=== PATIENT | male | born 1965 | race African-American/Black ===

== ENCOUNTER 2019-07-07 04:52 | Emergency (ER) | payer OTHER ==
[~2019-07-07] VITALS: Ht 177.8 cm; Wt 113.9 kg
[~2019-07-07 04:52] MED LIST: NAPR500T8 PO
[2019-07-07 05:00] VITALS: BP 162/107
[2019-07-07] MEDS ORDERED: DEXAMETHASONE 4 MG TABLET PO ONE (05:30)
[2019-07-07] MEDS ORDERED: NEOM10DR32 EACH EAR (05:44)
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
== END 2019-07-07 05:50 | disposition home or self-care (01) ==
LOC: ER 04:52
DX: H60.501 Unspecified acute noninfective otitis externa, right ear (principal)
CPT/HCPCS: 99283; J8540

== ENCOUNTER 2019-11-01 07:37 | Emergency (ER) | payer OTHER ==
[~2019-11-01] VITALS: Ht 177.8 cm; Wt 115.7 kg
[~2019-11-01 07:37] MED LIST changes: +NEOM10DR32 EACH EAR
[2019-11-01 07:45] VITALS: BP 166/110
[2019-11-01] MEDS ORDERED: SENN-121 PO (08:12)
[2019-11-01] MEDS ORDERED: HYDR25SU18 RC (08:12)
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
== END 2019-11-01 08:27 | disposition home or self-care (01) ==
LOC: ER 07:37
DX: K64.5 Perianal venous thrombosis (principal); K59.00 Constipation, unspecified
CPT/HCPCS: 99283

== ENCOUNTER 2020-04-26 17:39 | Emergency (ER) | payer OTHER, MEDICARE ==
[~2020-04-26] VITALS: Ht 177.8 cm; Wt 115.9 kg
[~2020-04-26 17:39] MED LIST changes: +HYDR25SU18 RC; +SENN-121 PO
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
[2020-04-26] MEDS ORDERED: HYDR-3164 PO (19:45)
[2020-04-26] MEDS ORDERED: ORPH100T PO (19:45)
[2020-04-26 19:53] VITALS: BP 159/61
== END 2020-04-26 19:53 | disposition home or self-care (01) ==
LOC: ER 17:39
DX: M54.2 Cervicalgia (principal); G89.11 Acute pain due to trauma; M54.5 Low back pain; M54.6 Pain in thoracic spine; R51 Headache; G89.29 Other chronic pain; M47.812 Spondylosis without myelopathy or radiculopathy, cervical region; V46.4XXA Person boarding or alighting a car injured in collision with other nonmotor vehicle, initial encounter; Y92.488 Other paved roadways as the place of occurrence of the external cause; Y93.89 Activity, other specified; Y99.8 Other external cause status
CPT/HCPCS: 70450; 72072; 72110; 72125; 99285-25

== ENCOUNTER 2021-11-01 11:08 | Emergency (ER) | payer MEDICARE, OTHER ==
[~2021-11-01] VITALS: Ht 177.8 cm; Wt 112.8 kg
[~2021-11-01 11:08] MED LIST changes: +HYDR-3164 PO; +ORPH100T PO
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
[2021-11-01] MEDS ORDERED: IV NORMAL SALINE 1000ML BAG 1,000 ML IV SCH (14:00)
[2021-11-01] MEDS ORDERED: fentaNYL PF VIAL 100 MCG/2 ML VIAL IV ONE (14:00)
--- NOTE | 2021-11-01 14:43 | RAD ---
INDICATION: Reason: flank pain, r/o stone / Spl. Instructions: / History: COMPARISON: None. TECHNIQUE: Axial CT images were obtained through the abdomen and pelvis without intravenous contrast. One or more of the following individualized dose reduction techniques were utilized for this examinat ion: 1. Automated exposure control; 2. Adjustment of the mA and/or kV according to patient size; 3 . Use of iterative reconstruction technique. FINDINGS: Vascular: Calcific atherosclerosis. Hepatobiliary: No intrahepatic biliary duct dilation. Pancreas: No peripancreatic edema. Spleen: Spleen unremarkable. Renal/Bladder: Right renal cystic lesion. No hydronephrosis. Gastrointestinal: No periappendiceal inflammatory changes. No dilated loops of bowel to suggest obstr uction. Degenerative changes the spine with multilevel central canal and neural foraminal stenosis. Postopera tive changes to left proximal femur with intramedullary evan. There are some heterotopic ossification adjacent to the hips. Osseous excrescence. IMPRESSION: * No evidence of bowel obstruction or appendicitis. * No hydronephrosis. 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 Electronically signed by: Magdy Wade MD (11/01/2021 2:40 PM) [id number]
[2021-11-01 14:44] LABS: BILIRUBIN,URINE NEGATIVE (NEG); CLARITY,URINE CLEAR; COLOR,URINE YELLOW; NITRITE,URINE NEGATIVE (NEG); PH,URINE 7.5 (<5.0-8.0); PROTEIN,URINE NEGATIVE (NEG-TRACE); UROBILINOGEN,URINE 0.2 mg/dL (0.2 mg/dL)
[2021-11-01 14:57] LABS: BACTERIA,URINE 0 /HPF (0-FEW); HYALINE CASTS, URINE FEW /HPF; RBC,URINE OCC /HPF (0-2); WBC,URINE OCC /HPF (0-4)
[2021-11-01 15:29] LABS: BASO # 0.1 x10^3/uL (0.0-0.2); BASO % 1 % (0-3); EOS # 0.5 x10^3/uL (0.0-0.7); EOS % 8 % (0-3); LYMPH # 1.7 x10^3/uL (1.0-4.8); LYMPH % 29 % (24-48); MEAN CORPUSCULAR HEMOGLOBIN 29 pg (25-35); MEAN CORPUSCULAR HGB CONC 33 g/dL (31-37); MEAN CORPUSCULAR VOLUME 86 fL (79-100); MONO # 0.6 x10^3/uL (0.0-1.1); MONO % 10 % (0-9); NEUT # 3.1 x10^3/uL (1.8-7.7); NEUT % 52 % (31-73); PLATELET COUNT 267 x10^3/uL (140-400); RED BLOOD COUNT 4.89 x10^6/uL (4.30-5.70); RED CELL DISTRIBUTION WIDTH 14.8 % (11.5-14.5); WHITE BLOOD COUNT 5.9 x10^3/uL (4.0-11.0)
[2021-11-01 15:46] LABS: CALCIUM 8.8 mg/dL (8.5-10.1); CREATININE 0.9 mg/dL (0.7-1.3); GFR 105.2; POTASSIUM 4.7 mmol/L (3.5-5.1)
[2021-11-01 15:53] LABS: ALBUMIN 3.5 g/dL (3.4-5.0); ALBUMIN/GLOBULIN RATIO 0.9 (1.0-1.7); TOTAL BILIRUBIN 0.5 mg/dL (0.2-1.0); TOTAL PROTEIN 7.4 g/dL (6.4-8.2)
[2021-11-01 17:06] VITALS: BP 171/94
== END 2021-11-01 17:10 | disposition home or self-care (01) ==
LOC: ER 11:08
DX: R10.9 Unspecified abdominal pain (principal)
CPT/HCPCS: 36415; 74176; 80053; 81001; 85025; 96360; 99284; J7030